=== PATIENT | male | born 1985 | race Caucasian/White ===

== ENCOUNTER 2021-06-14 21:12 | Emergency (ER) | payer BC, MEDICAID ==
[2021-06-14 21:53] VITALS: BP 138/84; PULSE 118
[2021-06-14 23:12] LABS: ANION GAP 16.2 mEq/L (7-13); CHLORIDE,CL 103 mmol/L (98-107); SODIUM,NA 142 mmol/L (136-145)
--- NOTE | 2021-06-15 00:59 | EDM.PDOC ---
ED HPI GENERAL MEDICAL PROBLEM - General Chief Complaint: Chest Pain Stated Complaint: NUMB LEFT ARM, GAS AROUND THE CHEST AREA PER PT Time Seen by Provider: 06/14/21 21:40 Source of Information: Reports: Patient, Provider, RN - History of Present Illness INITIAL COMMENTS - FREE TEXT/NARRATIVE: 36-year-old male who presents to the ER with complaints of chest pain that radiates into his abdomen x4 hours ago. Patient reports that in the last couple of days, he has been having chest pain intermittently. He reports the chest pain would last for couple of minutes and then resolve on its own. He states he has gained over 100 pounds in the last year. He denies chest pain at the time of this visit but admits chest pain has been ongoing for couple of days. He has not tried anything for his chest pain. He recently had spine surgery on March 19, 2021. He also admits to history of hypertension and tachycardia but states he has not been treated for couple of years. He denies any shortness of breath, but admits to being diaphoretic when he had his last episode of chest pain. He denies any nausea or vomiting or dizziness. Left Arm Pain Score (Numeric/FACES): 4 - Related Data Allergies Allergy/AdvReac Type Severity Reaction Status Date / Time No Known Allergies Allergy Verified 05/20/16 06:47 Past Medical History Gastrointestinal History: Reports: Other (See Below) Endocrine/Metabolic History: Reports: Obesity/BMI 30+ - Past Surgical History GI Surgical History: Reports: Cholecystectomy Social & Family History - Family History Family Medical History: No Pertinent Family History ED ROS GENERAL - Review of Systems Review Of Systems: Comprehensive ROS is negative, except as noted in HPI. ED EXAM, GENERAL - Physical Exam Exam: See Below Exam Limited By: No Limitations General Appearance: Alert, Mild Distress Eye Exam: Bilateral Eye: PERRL Ears: Normal External Exam, Normal Canal, Hearing Grossly Normal, Normal TMs Nose: Normal Inspection, Normal Mucosa, No Blood Throat/Mouth: Normal Oropharynx, Normal Voice, No Airway Compromise Head: Atraumatic, Normocephalic Neck: Normal Inspection, Supple, Non-Tender, Full Range of Motion Respiratory/Chest: No Respiratory Distress, Lungs Clear, Normal Breath Sounds, No Accessory Muscle Use, Chest Non-Tender Cardiovascular: Normal Peripheral Pulses, Regular Rate, Rhythm, No Edema, No Gallop, No JVD, No Murmur, No Rub Peripheral Pulses: 2+: Posterior Tibial (L), Posterior Tibial (R), Dorsalis Pedis (L), Dorsalis Pedis (R) GI/Abdominal: Normal Bowel Sounds, Soft, Non-Tender (Male) Exam: Deferred Rectal (Males) Exam: Deferred Extremities: Normal Inspection, Normal Range of Motion, No Pedal Edema Neurological: Alert, Oriented, Normal Gait Psychiatric: Normal Affect, Anxious Skin Exam: Warm, Intact Lymphatic: No Adenopathy #1 Interpretation EKG Date: 06/14/21 Time: 21:38 Rhythm: Other (Sinus tachycardia) Rate (Beats/Min): 120 Course - Vital Signs Last Recorded V/S: Last Vital Signs Temp 98.4 F 06/14/21 21:46 Pulse 118 H 06/14/21 21:46 Resp 20 06/14/21 21:46 BP 138/84 06/14/21 21:46 Pulse Ox 98 06/14/21 21:46 - Orders/Labs/Meds Labs: Laboratory Tests 06/14/21 06/14/21 Range/Units 22:39 22:39 WBC 13.4 H (5.0-10.0) 10^3/uL RBC 5.46 (4.6-6.2) 10^6/uL Hgb 16.2 D (14.0-18.0) g/dL Hct 47.1 (40.0-54.0) % MCV 86.3 (80-100) fL MCH 29.7 (27.0-34.0) pg MCHC 34.4 (33.0-35.0) g/dL Plt Count 293 D (150-450) 10^3/uL Neut % (Auto) 72.5 (42.2-75.2) % Lymph % (Auto) 18.8 L (20.5-50.1) % Lewis % (Auto) 7.3 (2-8) % Eos % (Auto) 0.7 L (1.0-3.0) % Baso % (Auto) 0.7 (0.0-1.0) % Add Manual Diff Yes Neutrophils % (Manual) 73 (42-75) % Band Neutrophils % 2 % Lymphocytes % (Manual) 20 (20-50) % Monocytes % (Manual) 4 (2-8) % Eosinophils % (Manual) 1 (1-3) % Platelet Estimate Adequate Sodium 142 (136-145) mmol/L Potassium 4.2 (3.5-5.1) mmol/L Chloride 103 (98-107) mmol/L Carbon Dioxide 27 (21-32) mmol/L Anion Gap 16.2 H (7-13) mEq/L BUN 12 (7-18) mg/dL Creatinine 0.79 (0.70-1.30) mg/dL Est Cr Clr Drug Dosing 151.74 mL/min Estimated GFR (MDRD) > 60 BUN/Creatinine Ratio 15.2 (No establ ref range) Glucose 110 H (70-99) mg/dL Calcium 8.9 (8.5-10.1) mg/dL Magnesium 1.8 (1.8-2.4) mg/dL Total Bilirubin 0.4 (0.2-1.0) mg/dL AST 19 (15-37) U/L ALT 30 (16-63) U/L Alkaline Phosphatase 90 (46-116) U/L Troponin I High Sens 4 (<=76) pg/mL Total Protein 7.5 (6.4-8.2) g/dL Albumin 3.8 (3.4-5.0) g/dL Globulin 3.7 Albumin/Globulin Ratio 1.0 - Re-Assessments/Exams Free Text/Narrative Re-Assessment/Exam: Review exam, EKG and lab findings with patient. Encouraged him to follow-up with his PCP outpatient. Also encouraged him to return to the ER if symptoms get worsen or return. Departure - Departure Time of Disposition: 01:27 Disposition: Home, Self-Care 01 Condition: Good Clinical Impression: Chest pain Qualifiers: Chest pain type: unspecified Qualified Code(s): R07.9 - Chest pain, unspecified Instructions: Nonspecific Chest Pain, Adult, [id number] Forms: ED Department Discharge Additional Instructions: Encouraged patient to establish with his PCP and follow up in two days or return to the ED if symptoms worsens. patient verbalized understanding. Sepsis Event Note (ED) - Evaluation Sepsis Screening Result: No Definite Risk
== END 2021-06-15 01:37 | disposition home or self-care (01) ==
LOC: DL.ED 21:12
DX: R07.9 Chest pain, unspecified (principal); I10 Essential (primary) hypertension; R00.0 Tachycardia, unspecified; E66.9 Obesity, unspecified; Z68.42 Body mass index [BMI] 45.0-49.9, adult; Z98.890 Other specified postprocedural states
CPT/HCPCS: 36415; 80053; 83735; 84484; 85025; 93005; 93010; 99284; 99285-25

== ENCOUNTER 2025-01-02 10:52 | Emergency (ER) | payer MEDICAID ==
[2025-01-02 13:26] VITALS: BP 126/68; PULSE 95
== END 2025-01-02 13:20 | disposition home or self-care (01) ==
LOC: DL.ED 10:52
DX: J10.1 Influenza due to other identified influenza virus with other respiratory manifestations (principal); J18.9 Pneumonia, unspecified organism; I10 Essential (primary) hypertension; E66.9 Obesity, unspecified; F17.210 Nicotine dependence, cigarettes, uncomplicated; Z90.49 Acquired absence of other specified parts of digestive tract
CPT/HCPCS: 87081; 87428-QW; 87430; 99283; 99284